=== PATIENT | female | born 1990 | race Caucasian/White ===

== ENCOUNTER 2023-11-02 12:35 | Inpatient (IN) | payer MEDICAID ==
[~2023-11-02] VITALS: Ht 157.5 cm; Wt 99.8 kg
[~2023-11-02 12:35] MED LIST: ALBU0.0912 IH; PHEN100C3 PO
[2023-11-02] MEDS ORDERED: MORPHINE SULFATE 10 MG/ML VIAL IVP PRN (13:25)
[2023-11-02] MEDS ORDERED: ONDANSETRON 4 MG/2 ML VIAL IVP PRN (13:25)
[2023-11-02] MEDS ORDERED: MISOPROSTOL 25 MCG TAB VG SCH (13:48)
[2023-11-02] MEDS ORDERED: PREN-543 PO (13:55)
[2023-11-02 14:20] LABS: BASOPHILS % (AUTO) 0.3 % (0.0-2.0); EOSINOPHILS # (AUTO) 0.1 K/uL (0-0.4); EOSINOPHILS % (AUTO) 0.8 % (0.0-4.0); HEMATOCRIT 33.3 % (36-48); HEMOGLOBIN 11.7 g/dL (12.0-16.0); LYMPHOCYTES # (AUTO) 1.6 K/uL (2.5-16.5); LYMPHOCYTES % (AUTO) 18.2 % (20.5-51.1); MEAN CORPUSCULAR HEMOGLOBIN 32 pg (27-31); MEAN CORPUSCULAR HGB CONC 35 g/dL (33-37); MEAN CORPUSCULAR VOLUME 92.4 fL (80-94); MONOCYTES # (AUTO) 0.5 K/uL (0.8-1.0); MONOCYTES % (AUTO) 5.2 % (1.7-9.3); NEUTROPHILS # (AUTO) 6.7 K/uL (1.8-7.7); NEUTROPHILS % (AUTO) 75.5 % (42.2-75.2); PLATELET COUNT (AUTO) 123 K/uL (140-450); RED CELL DISTRIBUTION WIDTH 15.5 % (11.6-13.7); WHITE BLOOD COUNT (AUTO) 8.8 K/uL (4.8-10.8)
[2023-11-02 14:28] LABS: BILIRUBIN,URINE NEGATIVE (NEGATIVE); BLOOD, URINE NEGATIVE (NEGATIVE); LEUKOCYTE ESTERASE ,URINE 1+ (NEGATIVE); NITRITE, URINE NEGATIVE (NEGATIVE); PROTEIN,URINE TRACE (NEGATIVE); UGLUCOSE NEGATIVE (NEGATIVE)
[2023-11-02 14:47] LABS: APPEARANCE,URINE HAZY (CLEAR); COLOR,URINE AMBER (YELLOW)
[2023-11-02 14:55] LABS: ALBUMIN 2.6 g/dL (3.4-5.0); ANION GAP 14.9 (8-16); CALCIUM 8.4 mg/dL (8.5-10.1); CARBON DIOXIDE 22.8 mmol/L (21-32); CREATININE 0.6 mg/dL (0.6-1.3); POTASSIUM 3.7 mmol/L (3.5-5.1); TOTAL BILIRUBIN 0.7 mg/dL (0.0-1.0); TOTAL PROTEIN, SERUM 6.5 g/dL (6.4-8.2)
[2023-11-02 15:33] LABS: BACTERIA,URINE FEW /HPF (None Seen); RBC,URINE 0-5 /HPF (0-5); WBC,URINE 0-5 /HPF (0-5)
[2023-11-02] MEDS: LACTATED RINGERS 1,000 ML IV SCH ×2 (16:15→21:59)
[2023-11-02] MEDS ORDERED: OXYTOCIN 20 UNITS in LACTATED RINGERS 1,000 ML IV SCH (21:15)
[2023-11-02] MEDS ORDERED: OXYTOCIN 20 UNITS/LR PREMIX 1,000 ML IV ONE (21:25)
[2023-11-02] MEDS: MORPHINE SULFATE 10 MG/ML VIAL IVP PRN ×2 (21:47→23:58)
[2023-11-02] MEDS ORDERED: LIDOCAINE MPF 1% 10 MG/ML VIAL INJ ONE (22:40)
[2023-11-02] MEDS ORDERED: CARBOPROST 250 MCG/ML AMP IM ONE (22:40)
[2023-11-02 23:58] VITALS: BP 119/67; PULSE 65; RESP 20
[2023-11-03] MEDS ORDERED: CARBOPROST 250 MCG/ML AMP IM ONE (01:30)
[2023-11-03] MEDS ORDERED: METHYLERGONOVINE 0.2 MG/ML AMP IM PRN (01:45)
[2023-11-03] MEDS ORDERED: TEMAZEPAM 15 MG CAP PO PRN (01:45)
[2023-11-03] MEDS ORDERED: oxyCODONE/APAP 5/325 MG 1 TAB TAB PO PRN (01:45)
[2023-11-03] MEDS ORDERED: BENZOCAINE/MENTHOL 20%-0.5% 60 GM CAN TP PRN (01:45)
[2023-11-03] MEDS: oxyCODONE/APAP 5/325 MG 1 TAB TAB PO PRN ×2 (02:28→12:56)
[2023-11-03] MEDS ORDERED: DOCUSATE SOD/SENNA 50/8.6 MG 1 TAB PO SCH (21:00)
[2023-11-04 05:35] LABS: HEMATOCRIT 26.6 % (36-48); HEMOGLOBIN 9.2 g/dL (12.0-16.0)
[2023-11-04] MEDS: oxyCODONE/APAP 5/325 MG 1 TAB TAB PO PRN (06:42)
[2023-11-04] MEDS ORDERED: FLU VACCINE QS2022-23 0.5 ML SYR IMVAC ONE (07:55)
[2023-11-04] MEDS ORDERED: FLU VACCINE QS2023-24 0.5 ML SYR IMVAC ONE (08:35)
== END 2023-11-04 10:45 | disposition home or self-care (01) | DRG 560 ==
LOC: MLD 12:35 → MFCC 11-03 05:30
PROVIDERS: ADMIT Obstetrics & Gynecology; ATTEND Obstetrics & Gynecology
PROC: 10E0XZZ Delivery of Products of Conception, External Approach (ICD-10-PCS; principal; 2023-11-03)
DX: O80 Encounter for full-term uncomplicated delivery (principal); Z37.0 Single live birth; Z20.822 Contact with and (suspected) exposure to COVID-19; Z3A.39 39 weeks gestation of pregnancy
CPT/HCPCS: 36415; 59200; 59409; 80053; 81001; 85018; 85025; 86592; 86886; 86900; 86901; 87086; 90715; J2001; J2270; J2405; J2590; J3490; J7120